=== PATIENT | male | born 1945 | race Two or more races ===

== ENCOUNTER 2019-08-15 13:24 | Outpatient (CLI) | payer MEDICARE | END 2019-08-15 23:59 | disposition home or self-care (01) | LOC: MRI 13:24 | PROVIDERS: ATTEND Podiatrist Foot & Ankle Surgery | DX: M19.071 Primary osteoarthritis, right ankle and foot (principal); M21.41 Flat foot [pes planus] (acquired), right foot; M72.2 Plantar fascial fibromatosis; R60.0 Localized edema | CPT/HCPCS: 73718-TC ==

== ENCOUNTER 2019-09-07 12:08 | Outpatient (CLI) | payer MEDICARE, BC | END 2019-09-07 23:59 | disposition home or self-care (01) | LOC: RAD 12:08 | PROVIDERS: ATTEND Podiatrist Foot & Ankle Surgery | DX: M77.31 Calcaneal spur, right foot (principal); M77.32 Calcaneal spur, left foot; M20.11 Hallux valgus (acquired), right foot; M72.2 Plantar fascial fibromatosis; M21.42 Flat foot [pes planus] (acquired), left foot; M21.41 Flat foot [pes planus] (acquired), right foot | CPT/HCPCS: 73590-TC; 73630-TC; 73650-TC ==